=== PATIENT | female | born 1985 | race Caucasian/White ===

== ENCOUNTER 2020-09-01 18:39 | Emergency (ER) | payer BC ==
--- NOTE | 2020-09-01 19:56 | ER Document Report ---
ED Medical Screen (RME) - General Chief Complaint: Sore Throat Stated Complaint: SORE THROAT/CONGESTION Time Seen by Provider: 09/01/20 19:47 Mode of Arrival: Ambulatory Information source: Patient Notes: 34-year-old female presented ED with a complaint of right lower abdomen, pelvic pain. She also has a sore throat. As menstrual period July 30, 2020. She is alert oriented respirations regular nonlabored speaking in full sentences. She states she is having intermittent diarrhea it will be hard and will be soft and very hard and obese soft for the last 3 weeks. She states she has had foot surgery for hammertoe ember bunions. She does not drink or smoke but she does occasionally use marijuana. Have ordered blood urine strep and ultrasound. I have greeted and performed a rapid initial assessment of this patient. A comprehensive ED assessment and evaluation of the patient, analysis of test results and completion of medical decision making process will be conducted by an additional ED providers. TRAVEL OUTSIDE OF THE [place] IN LAST 30 DAYS: No - Related Data Allergies/Adverse Reactions: diazepam [From Valium] Adverse Reaction (Mild, Verified 11/06/16 14:20) Abnormal behavior Past Medical History - Social History Frequency of alcohol use: None Drug Abuse: Marijuana Family history: Reviewed & Not Pertinent Pulmonary Medical History: Reports: Hx Asthma, Hx Pneumonia Denies: Hx Tuberculosis Neurological Medical History: Reports: Hx Migraine Renal/ Medical History: Reports: Hx Ovarian Cysts Malignancy Medical History: Reports: Hx Cervical Cancer Musculoskeltal Medical History: Reports Hx Arthritis, Reports Hx Musculoskeletal Deformity, Reports Hx Musculoskeletal Trauma Skin Medical History: Reports Hx Eczema Psychiatric Medical History: Reports: Hx Anxiety, Hx Attention Deficit Hyperactivity Disorder, Hx Bipolar Disorder Traumatic Medical History: Reports: Hx Fractures Infectious Medical History: Denies: Hx MRSA Past Surgical History: Reports: Hx Orthopedic Surgery - Bilat feet with hardware - Immunizations Immunizations up to date: Yes Hx Diphtheria, Pertussis, Tetanus Vaccination: Yes Physical Exam - Vital signs Vitals: Temp Pulse Resp BP Pulse Ox 98.0 F 62 16 105/73 100 09/01/20 18:48 09/01/20 18:48 09/01/20 18:48 09/01/20 18:48 09/01/20 18:48 Course - Vital Signs Vital signs: Temp Pulse Resp BP Pulse Ox 98.0 F 62 16 105/73 100 09/01/20 18:48 09/01/20 18:48 09/01/20 18:48 09/01/20 18:48 09/01/20 18:48
--- NOTE | 2020-09-01 21:16 | ER Document Report ---
ED General - General Chief Complaint: Sore Throat Stated Complaint: SORE THROAT/CONGESTION Time Seen by Provider: 09/01/20 19:47 Mode of Arrival: Ambulatory Information source: Patient Notes: 34-year-old female with history of chronic back pain and carpal tunnel presents to the emergency room complaining of a sore throat for the past 3 days. States is able to swallow but is painful. She denies any fevers. States she is eating and drinking normally. Has not taken any medications for her symptoms. Also complaining of some right lower quadrant pain for the past 2 days which she describes as dull and achy. She denies any nausea, vomiting, states she has had intermittent diarrhea for several weeks which is not new. Denies any urinary symptoms. She denies any recent travel. She denies any COVID-19 exposure. TRAVEL OUTSIDE OF THE [place] IN LAST 30 DAYS: No - Related Data Allergies/Adverse Reactions: diazepam [From Valium] Adverse Reaction (Mild, Verified 11/06/16 14:20) Abnormal behavior Past Medical History - General Information source: Patient - Social History Smoking Status: Never Smoker Frequency of alcohol use: None Drug Abuse: Marijuana Family History: Arthritis, Hypertension, Malignancy, Thyroid Disfunction Patient has homicidal ideation: No Pulmonary Medical History: Reports: Hx Asthma, Hx Pneumonia Denies: Hx Tuberculosis Neurological Medical History: Reports: Hx Migraine Renal/ Medical History: Reports: Hx Ovarian Cysts Malignancy Medical History: Reports: Hx Cervical Cancer Musculoskeletal Medical History: Reports Hx Arthritis, Reports Hx Musculoskeleta l Deformity, Reports Hx Musculoskeletal Trauma Skin Medical History: Reports Hx Eczema Psychiatric Medical History: Reports: Hx Anxiety, Hx Attention Deficit Hyperactivity Disorder, Hx Bipolar Disorder Traumatic Medical History: Reports: Hx Fractures Infectious Medical History: Denies: Hx MRSA Past Surgical History: Reports: Hx Orthopedic Surgery - Bilat feet with hardware - Immunizations Immunizations up to date: Yes Hx Diphtheria, Pertussis, Tetanus Vaccination: Yes Review of Systems - Review of Systems Constitutional: No symptoms reported EENT: Throat pain Cardiovascular: No symptoms reported Respiratory: No symptoms reported Gastrointestinal: Abdominal pain, Diarrhea - Intermittent and chronic for the past several weeks. denies: Nausea, Vomiting Genitourinary: No symptoms reported Female Genitourinary: No symptoms reported Musculoskeletal: No symptoms reported Skin: No symptoms reported Neurological/Psychological: No symptoms reported -: Yes All other systems reviewed and negative Physical Exam - Vital signs Vitals: Temp Pulse Resp BP Pulse Ox 98.0 F 62 16 105/73 100 09/01/20 18:48 09/01/20 18:48 09/01/20 18:48 09/01/20 18:48 09/01/20 18:48 - Notes Notes: VITAL SIGNS: Within normal limits. GENERAL: Mild acute distress, non-toxic appearance. HEAD: Normal with no signs of head trauma. EYES: PERRLA, EOMI, conjunctiva normal, no discharge. EARS: Hearing grossly intact. Tympanic membranes intact bilaterally without any erythema or bulging. Bilateral outer nails without erythema or swelling. NOSE: Normal. Turbinates are not erythematous, clear discharge is noted. Sinuses are nontender to palpation. THROAT: Oropharynx is normal. Positive for posterior pharyngeal petechiae, no exudate. No tonsillar enlargement. NECK: Normal range of motion, no tenderness, supple, no lymphadenopathy, No adenopathy, no JVD. Negative Meningismus, Negative brudzzinski, Negative Kernig's CHEST: Clear breath sounds bilaterally. No wheezes, rales, or rhonchi. CARDIAC: Regular rate and rhythm. S1 and S2, without murmurs, gallops, or rubs. VASCULAR: No Edema. Peripheral pulses normal and equal in all extremities. ABDOMEN: Normal and soft with no tenderness, no masses or pulsatile masses. No guarding, no rebound, negative McBurney's negative for CVA tenderness noted bilaterally. GASTROINTESTINAL: Bowel sounds normal GENITOURINARY: Normal, No tenderness LYMPATHTIC: No lymphadenopathy noted. MUSCULOSKELETAL: Good range of motion of all major joints. Extremities without clubbing, cyanosis or edema. NEUROLOGICAL: Alert and oriented x 3. No focal sensory or strength deficits. Speech normal. Follows commands appropriately. PSYCHIATRIC: Normal Affect, judgement and mood. SKIN: Normal appearance with no rashes or lesions. Course - Re-evaluation Re-evalutation: 09/01/20 23:32 Patient with no guarding, no rebound, no McBurney's, no concerns for appendicitis with presentation and exam. She denies any pain. She is pain-free on exam. Patient is resting comfortably she is afebrile. She is nontoxic- appearing, she is able to tolerate p.o. fluids. Reviewed all lab results with patient. Patient with a negative strep but clinically has strep based on presentation. Ultrasound is still pending. Patient has requested to leave AGAINST MEDICAL ADVICE states she can no longer wait for the ultrasound. Will be discharged home amoxicillin. She was counseled on importance of an outpatient follow-up with her primary care physician if not improving in 2 to 3 days. She was counseled on the risks of leaving AGAINST MEDICAL ADVICE. The patient has chosen to leave the facility against medical advice. The relevant issues have been reviewed and discussed with the patient and family at the bedside. At the time of this assessment there is no indication for involuntary commitment. The patient is alert, oriented, and able to express clearly their reasoning for not wanting to remain in the emergency department for further treatment. The patient is not clinically psychotic, intoxicated, and denies and suicidal ideation. Differential or suspected diagnoses based on medical screening exam: Right lower quadrant pain The patient is aware of the concerning diagnoses and acknowledges understanding of the reasons for the following recommendations: Loss of life, permanent disability, chronic pain, worsening of condition, cardiac dysfunction, respiratory dysfunction ,loss of current lifestyle, urinary dysfunction, reproductive dysfunction The following recommendations/services were offered and refused: Further testing and evaluation The following risks were explained: , permanent disability, loss of current lifestyle, respiratory dysfunction, urinary dysfunction, chronic pain, reproductive dysfunction. Clinical impression: Patient is competent to make decisions regarding the medical that is being offered. 09/01/20 23:34 - Vital Signs Vital signs: Temp Pulse Resp BP Pulse Ox 98.2 F 66 17 110/70 99 09/01/20 22:58 09/01/20 22:58 09/01/20 22:58 09/01/20 22:58 09/01/20 22:58 - Laboratory Result Diagrams: 09/01/20 21:22 09/01/20 21:22 Laboratory results interpreted by me: 09/01/20 09/01/20 21:22 22:30 WBC 11.0 H Urine Blood SMALL H Discharge - Discharge Clinical Impression: Strep throat, Pelvic pain, Left against medical advice Condition: Stable Disposition: HOME, SELF-CARE Instructions: Pelvic Pain ([facility]), Strep Throat ([facility]) Additional Instructions: Tylenol and or Motrin as needed for pain. Take antibiotics as prescribed. Follow-up with primary care physician if not improving in 2 days. You have requested to leave AGAINST MEDICAL ADVICE. You have been counseled against the risks of leaving AGAINST MEDICAL ADVICE including but not limited to , worsening condition, loss of current lifestyle, chronic pain, reproductive dysfunction, urinary dysfunction. You may return at any time for further evaluation and treatment. Prescriptions: Amoxicillin 1 tab PO TID #30 tab
[2020-09-01 21:38] LABS: ABSOLUTE BASOPHILS # (AUTO) 0.1 10^3/uL (0.0-0.2); ABSOLUTE EOSINOPHILS # (AUTO) 0.2 10^3/uL (0.0-0.6); ABSOLUTE LYMPHOCYTES (AUTO) 3.9 10^3/uL (0.5-4.7); ABSOLUTE MONOCYTES (AUTO) 0.6 10^3/uL (0.1-1.4); ABSOLUTE NEUT (AUTO) 6.3 10^3/uL (1.7-8.2); BASOPHILS % (AUTO) 0.5 % (0-2); HEMATOCRIT 37.6 % (36.0-47.0); HEMOGLOBIN 13.1 g/dL (12.0-15.5); MEAN CORPUSCULAR HEMOGLOBIN 32.7 pg (27.0-33.4); MEAN CORPUSCULAR HGB CONC 34.9 g/dL (32.0-36.0); MEAN CORPUSCULAR VOLUME 94 fl (80-97); MONOCYTES % (AUTO) 5.9 % (3-13); PLATELET COUNT 222 10^3/uL (150-450); RED BLOOD COUNT 4.01 10^6/uL (3.72-5.28); RED CELL DISTRIBUTION WIDTH 12.2 % (11.5-14.0); SEGMENTED NEUTROPHILS % (AUTO) 56.6 % (42-78); TOTAL CELLS COUNTED % (AUTO) 100 %
[2020-09-01 21:56] LABS: ALBUMIN 4.2 g/dL (3.5-5.0); ALKALINE PHOSPHATASE 45 U/L (38-126); ANION GAP 8 (5-19); ASPARTATE AMINO TRANSFERASE 19 U/L (14-36); BILIRUBIN,DIRECT 0.3 mg/dL (0.0-0.4); BILIRUBIN,TOTAL 0.4 mg/dL (0.2-1.3); BLOOD UREA NITROGEN 19 mg/dL (7-20); CALCIUM 9.6 mg/dL (8.4-10.2); CARBON DIOXIDE 26 mmol/L (22-30); CHLORIDE 103 mmol/L (98-107); GLUCOSE 100 mg/dL (75-110); POTASSIUM 3.9 mmol/L (3.6-5.0); TOTAL PROTEIN 6.8 g/dL (6.3-8.2)
[2020-09-01 22:46] LABS: APPEARANCE,URINE CLEAR; BILIRUBIN,URINE NEGATIVE (NEGATIVE); COLOR,URINE STRAW; GLUCOSE, URINE NEGATIVE (NEGATIVE); KETONES,URINE NEGATIVE (NEGATIVE); LEUKOCYTE ESTERASE,URINE NEGATIVE (NEGATIVE); NITRITE,URINE NEGATIVE (NEGATIVE); PROTEIN,URINE NEGATIVE (NEGATIVE); URINE SPECIFIC GRAVITY 1.011; UROBILINOGEN,URINE NEGATIVE mg/dL (<2.0)
[2020-09-01 22:59] VITALS: BP 110/70
[2020-09-01] MEDS ORDERED: AMOXICILLIN TRIHYDRATE 500 MG CAPSULE PO ONE (23:37)
--- NOTE | 2020-09-02 00:05 | RADIOLOGY REPORT (SQ) ---
EXAM DESCRIPTION: US PELVIS TRANSVAGINAL COMPLETED DATE/TME: 09/01/2020 22:26 CLINICAL HISTORY: 34 years, Female, pelvic pain COMPARISON: Prior study from 11/25/2015 TECHNIQUE: Axial 2-D grayscale images of the pelvis were acquired. Doppler was utilized. LIMITATIONS: None. FINDINGS: Uterus measures 10.3 x 6.3 x 7.7 cm in size. Endometrial stripe thickness measures 19 mm. Cervix is closed, measuring 3.2 cm in length. Right ovary measures 4.5 x 2.2 x 2.4 cm in size. Otherwise, it demonstrates normal low resistance arterial waveforms/venous flow. Visualized is a 1.3 x 1.1 x 0.8 cm hypoechoic lesion within the right ovary, indeterminate. Left ovary measures 3.7 x 1.5 x 2.4 cm in size. It demonstrates normal echogenicity and normal low resistance arterial waveforms/venous flow. No significant free fluid is identified within the imaged pelvis. IMPRESSION: 1.3 cm indeterminate ovarian cyst. Recommend pelvic US follow-up in 6-12 weeks; if unchanged, continue follow-up with US OR MRI with IV contrast - if follow-up studies do not confirm endometrioma or dermoid, consider surgical evaluation. Reference: Radiology 2010 Jul;256(3):943-54 Thickened endometrial stripe, possibly in the secretory phase. This can also be reassessed on follow-up. Otherwise, no other suspicious findings within the pelvis. copyright 2010 [employer]- All Rights Reserved
== END 2020-09-01 23:46 | disposition home or self-care (01) ==
LOC: ER 18:39
DX: J02.0 Streptococcal pharyngitis (principal); R10.2 Pelvic and perineal pain; R09.81 Nasal congestion; M54.9 Dorsalgia, unspecified; R10.31 Right lower quadrant pain; R10.9 Unspecified abdominal pain; R19.7 Diarrhea, unspecified; Z88.8 Allergy status to other drugs, medicaments and biological substances; Z53.20 Procedure and treatment not carried out because of patient's decision for unspecified reasons; J45.909 Unspecified asthma, uncomplicated
CPT/HCPCS: 36415; 76830; 80053; 81001; 84702; 85025; 87070; 87086; 87880; 93976; 99285

== ENCOUNTER 2020-11-28 14:59 | Emergency (ER) | payer SELFPAY ==
[2020-11-28 16:03] VITALS: BP 114/54
[2020-11-28] MEDS ORDERED: KETOROLAC TROMETHAMINE INJ/PF 30 MG/1 ML SDV IM ONE (16:21)
--- NOTE | 2020-11-28 16:32 | ER Document Report ---
ED Fall - General Chief Complaint: Fall Stated Complaint: PAIN ALL OVER/FALL Time Seen by Provider: 11/28/20 16:16 Mode of Arrival: Wheelchair Information source: Patient TRAVEL OUTSIDE OF THE [place] IN LAST 30 DAYS: No - HPI Patient complains to provider of: Pain after fall Notes: Patient here with complaints of pain after fall. The patient states that she was taking her dogs out yesterday when she slipped on some vinyl siding that was on the grass causing her to fall onto her back. She denies striking her head, denies loss of consciousness. Patient denies any blurred or lost vision. She is not on blood thinning medications. She does complain of neck pain, left shoulder pain and low back pain. She denies any chest pain or shortness of breath. No abdominal pain. No nausea, vomiting, diarrhea. No rash. Pain is constant, moderate to severe, worse with movement, better with rest. Patient states she takes Naprosyn, gabapentin and Flexeril for chronic back and wrist pain. She denies any severe headache at this time. No dysuria or hematuria. No bowel or bladder dysfunction. No IV drug use. No fever. No other complaints or injuries. - Related data Allergies/Adverse Reactions: diazepam [From Valium] Adverse Reaction (Mild, Verified 11/06/16 14:20) Abnormal behavior Past Medical History - Social History Smoking Status: Never Smoker Frequency of alcohol use: None Drug Abuse: Marijuana Family History: Arthritis, Hypertension, Malignancy, Thyroid Disfunction Pulmonary Medical History: Reports: Hx Asthma, Hx Pneumonia Denies: Hx Tuberculosis Neurological Medical History: Reports: Hx Migraine Renal/ Medical History: Reports: Hx Ovarian Cysts Malignancy Medical History: Reports: Hx Cervical Cancer Musculoskeletal Medical History: Reports Hx Arthritis, Reports Hx Musculoskeletal Deformity, Reports Hx Musculoskeletal Trauma Skin Medical History: Reports Hx Eczema Psychiatric Medical History: Reports: Hx Anxiety, Hx Attention Deficit Hyperactivity Disorder, Hx Bipolar Disorder Traumatic Medical History: Reports: Hx Fractures Infectious Medical History: Denies: Hx MRSA Past Surgical History: Reports: Hx Orthopedic Surgery - Bilat feet with hardware - Immunizations Immunizations up to date: Yes Hx Diphtheria, Pertussis, Tetanus Vaccination: Yes Review of Systems - Review of Systems -: Yes All other systems reviewed and negative Physical Exam - Vital signs Vitals: Temp Pulse Resp BP Pulse Ox 98.0 F 71 14 114/54 L 98 11/28/20 15:59 11/28/20 15:59 11/28/20 15:59 11/28/20 15:59 11/28/20 15:59 - Notes Notes: GENERAL: alert, cooperative, nontoxic, no distress. HEAD: normocephalic, atraumatic EYES: conjunctiva pink without discharge, no external redness or swelling. PERRL, EOM'S INTACT EARS: no external swelling, no external redness. No hemotympanum EM NOSE: atraumatic, no external swelling. No bleeding MOUTH/THROAT: mucous membranes moist and pink, posterior pharynx without erythema, swelling, exudate. No trismus or drooling. NECK: soft, supple, c-collar in place. Tenderness to palpation to the posterior cervical spine with no midline tenderness, step-offs or crepitus. CHEST: no distress, lungs clear and equal throughout. No wheezing, rales, rhonchi. CARDIAC: regular rate and rhythm, no murmur, normal capillary refill, normal pulses. No peripheral edema noted. ABDOMEN: Soft, nontender. Normal bowel sounds. BACK: Limited range of motion due to pain, no CVA tenderness. No midline tenderness, step-offs or crepitus to the thoracic spine. Mild midline tenderness to palpation of the lumbar spine and the sacroiliac joints. EXTREMITIES: Limited range of motion of the left shoulder with tenderness to palpation to the left anterior and distal shoulder. No obvious deformity. No redness. Normal pulse and sensation distally. NEURO: alert and oriented x 3, no focal deficits, full range of motion of all extremities. Cranial nerves II through XII are grossly intact. Normal sensation bilaterally. Normal strength bilaterally. Lower extremity reflexes +2 bilaterally. PYSCH: appropriate mood, affect. Patient is cooperative. SKIN: pink, warm, dry, no rash. Course - Re-evaluation Re-evalutation: 11/28/20 17:33 Patient resting comfortably at this time. I have gone over the results with the patient. Questions have been answered. C-collar was removed and C-spine was cleared. Patient will be discharged home. Patient is nontoxic-appearing with stable vitals. Here with complaints of neck pain, left shoulder pain and low back pain after she slipped and fell yesterday. She states that she was taking her dogs out when she stepped on a piece of vinyl siding on the grass slipped and fell on her back. No loss of consciousness, no severe headache, no blood thinners. She has a nonfocal neurol ogical exam. She was placed in a c-collar in triage. She does have some posterior tenderness to palpation but no midline tenderness, step-offs or crepitus. CT of the cervical spine is negative for fracture or malalignment, c- collar was removed and her C-spine was cleared. Patient also with tenderness to palpation to the left anterior shoulder and the low back. X-rays of the left shoulder and the lumbar spine are negative for fracture. Patient will be placed in a sling for comfort. Patient has no other signs of significant injury. Overall she looks well. Neurovascular she is intact. There is no signs of infection. Patient will be discharged home with instructions to wear her sling as needed for comfort. She is already taking Naprosyn, gabapentin and Flexeril which she can continue to take. She is instructed to follow-up if not better in 1 week, sooner for worsening pain, fever, numbness, tingling, weakness, any further concerns. The patient's emergency department workup and current diagnosis were explained to the patient and or family. Follow-up instructions were provided. Medications if prescribed were discussed. Instructions for when to return to the emergency department including specific worrisome symptoms were discussed with the patient and/or family. - Vital Signs Vital signs: Temp Pulse Resp BP Pulse Ox 98.0 F 71 14 114/54 L 98 11/28/20 15:59 11/28/20 15:59 11/28/20 15:59 11/28/20 15:59 11/28/20 15:59 - Laboratory Results Critical Laboratory Results Reviewed: No Critical Results - Radiology Results Critical Radiology Results Reviewed: No Critical Results Procedures - Immobilization Left Shoulder Pre-Proc Neuro Vasc Exam: Normal Immobilizer type: Sling Performed by: PCT Post-Proc Neuro Vasc Exam: Normal Alignment checked and good: Yes Discharge - Discharge Clinical Impression: Left shoulder strain Qualifiers: Encounter type: initial encounter Qualified Code(s): S46.912A - Strain of unspecified muscle, fascia and tendon at shoulder and upper arm level, left arm, initial encounter Cervical myofascial strain Qualifiers: Encounter type: initial encounter Qualified Code(s): S16.1XXA - Strain of muscle, fascia and tendon at neck level, initial encounter Lumbar contusion Qualifiers: Encounter type: initial encounter Qualified Code(s): S30.0XXA - Contusion of lower back and pelvis, initial encounter Fall Qualifiers: Encounter type: initial encounter Qualified Code(s): W19.XXXA - Unspecified fall, initial encounter Condition: Stable Disposition: HOME, SELF-CARE Instructions: Neck Injury (Cervical Strain) ([facility]), Low Back Pain ([facility]), Shoulder Injury ([facility]) Additional Instructions: Take your normal medication as prescribed. Wear sling as needed for comfort. Apply ice or heat to the sore areas. Follow-up if not better in 1 week, sooner for worsening pain, fever, numbness, tingling, weakness, any further concerns. Referrals: VERO COCHRAN, DO [ACTIVE STAFF] - Follow up as needed
--- NOTE | 2020-11-28 16:59 | RADIOLOGY REPORT (SQ) ---
EXAM DESCRIPTION: CT CERVICAL SPINE WITHOUT IMAGES COMPLETED DATE/TIME: 11/28/2020 4:44 pm REASON FOR STUDY: pain, fall COMPARISON: None. TECHNIQUE: Axial images acquired through the cervical spine without intravenous contrast. Images re viewed with lung, soft tissue and bone windows. Reconstructed coronal and sagittal MPR images review ed. Images stored on PACS. All CT scanners at this facility use dose modulation, iterative reconstruction, and/or weight based d osing when appropriate to reduce radiation dose to as low as reasonably achievable (ALARA). [facility]: Dose Right [facility]: CareDose [facility]: Dose Right [facility]: Teradose 4D [facility]: Smart [employer] RADIATION DOSE: CT Rad equipment meets quality standard of care and radiation dose reduction techniq ues were employed. CTDIvol: 7.5 mGy. DLP: 154 mGy-cm. mGy. LIMITATIONS: None. FINDINGS: ALIGNMENT: Reversal of the normal cervical lordosis, likely positional. MINERALIZATION: Normal. VERTEBRAL BODIES: No fractures or dislocation. DISCS: No significant disc disease. FACETS, LATERAL MASSES, POSTERIOR ELEMENTS: No fractures. No dislocation. No acute findings. HARDWARE: None in the spine. VISUALIZED RIBS: No fractures. LUNG APICES AND SOFT TISSUES: No significant or acute findings. OTHER: No other significant finding. IMPRESSION: Reversal of the normal cervical lordosis, likely positional. No other evidence of acute bony abnormality of the cervical spine. TECHNICAL DOCUMENTATION: JOB ID: [id number] Quality ID # [id number]: Final reports with documentation of one or more dose reduction techniques (e.g., Au tomated exposure control, adjustment of the mA and/or kV according to patient size, use of iterative reconstruction technique) 2010 [employer]- All Rights Reserved Reading location - IP/workstation name: [email or web address]
--- NOTE | 2020-11-28 17:24 | RADIOLOGY REPORT (SQ) ---
EXAM DESCRIPTION: L SPINE WHOLE IMAGES COMPLETED DATE/TIME: 11/28/2020 4:58 pm REASON FOR STUDY: pain, fall COMPARISON: None. NUMBER OF VIEWS: Five views including obliques. TECHNIQUE: AP, lateral, oblique, and sacral radiographic images acquired of the lumbar spine. LIMITATIONS: None. FINDINGS: MINERALIZATION: Normal. SEGMENTATION: Normal. No transitional anatomy. ALIGNMENT: Normal. VERTEBRAE: Maintained height. No fracture or worrisome bone lesion. DISCS: Preserved height. No significant osteophytes or end plate irregularity. POSTERIOR ELEMENTS: Pedicles and facets are intact. No pars defect or posterior arch defects. HARDWARE: None in the spine. PARASPINAL SOFT TISSUES: Normal. PELVIS: Intact as visualized. No fractures or worrisome bone lesions. SI joints intact. OTHER: No other significant finding. IMPRESSION: NORMAL 5 VIEW LUMBAR SPINE. TECHNICAL DOCUMENTATION: JOB ID: [id number] 2010 [employer]- All Rights Reserved Reading location - IP/workstation name: [email or web address]
--- NOTE | 2020-11-28 17:25 | RADIOLOGY REPORT (SQ) ---
EXAM DESCRIPTION: SHOULDER LEFT 2 OR MORE VIEWS IMAGES COMPLETED DATE/TIME: 11/28/2020 4:58 pm REASON FOR STUDY: pain, fall COMPARISON: None. NUMBER OF VIEWS: Three views. TECHNIQUE: Internal rotation, external rotation, and Y view images acquired of the left shoulder. LIMITATIONS: None. FINDINGS: MINERALIZATION: Normal. BONES: No acute fracture. No worrisome bone lesions. JOINTS: No dislocation. VISUALIZED LUNGS AND RIBS: No pneumothorax. No rib fracture. SOFT TISSUES: No radiopaque foreign body. OTHER: No other significant finding. IMPRESSION: NEGATIVE STUDY OF THE LEFT SHOULDER. NO RADIOGRAPHIC EVIDENCE OF ACUTE INJURY. TECHNICAL DOCUMENTATION: JOB ID: [id number] 2010 [employer]- All Rights Reserved Reading location - IP/workstation name: [email or web address]
== END 2020-11-28 19:15 | disposition home or self-care (01) ==
LOC: ER 14:59
DX: S16.1XXA Strain of muscle, fascia and tendon at neck level, initial encounter (principal); S46.912A Strain of unspecified muscle, fascia and tendon at shoulder and upper arm level, left arm, initial encounter; S30.0XXA Contusion of lower back and pelvis, initial encounter; M54.2 Cervicalgia; M25.512 Pain in left shoulder; M54.5 Low back pain; W01.0XXA Fall on same level from slipping, tripping and stumbling without subsequent striking against object, initial encounter; Y93.K1 Activity, walking an animal; Y92.009 Unspecified place in unspecified non-institutional (private) residence as the place of occurrence of the external cause; M54.9 Dorsalgia, unspecified; M25.539 Pain in unspecified wrist; G89.29 Other chronic pain; Z79.899 Other long term (current) drug therapy; Z79.1 Long term (current) use of non-steroidal anti-inflammatories (NSAID); F12.10 Cannabis abuse, uncomplicated; Z85.41 Personal history of malignant neoplasm of cervix uteri
CPT/HCPCS: 99285; 96372; 72110; 73030; 72125; J1885